=== PATIENT | female | born 1960 | race Caucasian/White ===

== ENCOUNTER 2025-09-28 07:04 | Day surgery (SDC) | payer MEDICARE, BC, SELFPAY ==
--- NOTE | 2025-09-26 07:24 | EXP.HP ---
History of Present Illness *Admission Date: 09/28/25 *History of present illness: Mrs. Padron is a 65-year-old female who is here for follow-up screening/surveillance colonoscopy. She does have a personal history of adenomatous colon polyps. She had a colonoscopy in February 2011 (Gianni Hernandez MD) and had multiple polyps removed. Her colonoscopy in May 2017 revealed 9 polyps (tubular adenomas x 9) which were removed. Her colonoscopy in August 2018 revealed 9 polyps (tubular adenomas x 9) which were removed. Her last colonoscopy in June 2022 revealed 5 polyps (tubular adenomas x 4/hyperplastic polyp x 1) which were removed. She reports no abdominal pain, weight loss, change in her bowel habits or rectal bleeding. She reports no family history of colon cancer. She did have cholecystectomy in February 2022 for symptomatic gallstones. The examination is deemed medically necessary for screening/surveillance colonoscopy. The patient has been seen, interviewed and examined prior to the procedure by both myself and the anesthesia provider. [facility] Disclaimer: The information contained in this section may have been updated after the patient was seen, as this information can be updated by other users. Medical History HLD (hyperlipidemia) Surgical History History of lumpectomy History of lithotripsy History of cholecystectomy History of hip replacement History of surgery on lower extremity History of surgery on wrist Family History Other Family history of heart disease Social History (Updated 09/28/25 @ 07:50 by Cole Cardozo CRNA) Smoking Status: Never smoker alcohol intake: never substance use type: denies use current occupational status: retired Travel in the last 8 weeks?: Inside the [place] Have you lived/traveled outside US in past 30 days?: No Contact w/someone who lives/traveled outside US past 30 days?: No Exposure to someone with infectious disease in past 14 days?: No Do you have a fever (greater than 100.4 F or 38 C)?: No Have you tested positive for COVID-19?: No Exposed to someone with COVID-19 in past 14 days?: No Do you have a sore throat?: No Do you have a cough?: No Do you have any weakness?: No Are you experiencing any nausea/vomitting?: No Do you have any diarrhea?: No Are you experiencing any unusual bleeding?: No Do you have any muscle aches/pain?: No Do you have any abdominal pain?: No Are you experiencing loss of taste or smell?: No Review of Systems Review of Systems Review of systems (narrative): Negative *Cardiovascular Comments: Negative *Gastrointestinal Comments: Negative *Genitourinary Comments: Negative *Musculoskeletal Comments: Negative *Neurologic Comments: Negative Meds Home Medications and Allergies Home Medications ?Medication ?Instructions ?Recorded ?Confirmed ?Type sodium,potassium,mag sulfates 17.5 See Rx Instructions PO .COMPLEX 09/14/25 Rx gram-3.13 gram-1.6 gram oral soln #354 mL (Suprep Bowel Prep Kit) atorvastatin 80 mg tablet (Lipitor) 80 mg PO DAILY 09/28/25 09/28/25 History New Prescriptions to Start Prescriptions: Allergies Allergy/AdvReac Type Severity Reaction Status Date / Time No Known Allergies Allergy Verified 09/28/25 07:35 Exam *Routine HEENT Exam Head: Present normocephalic Eye: Present EOMI and PERRL ENT: Present mucous membranes moist *Routine Neck Exam Neck: Present supple *Routine Respiratory Exam Respiratory: Present CTA bilaterally *Routine Cardiovascular Exam Cardiovascular: Present RRR *Routine Abdominal Exam Abdominal: Present soft and normoactive bowel sounds; Absent tenderness *Routine Rectal Exam Rectal:: deferred *Routine Genitalia Exam Genitalia:: deferred *Routine Extremities Exam Extremities: Absent cyanosis, clubbing or edema *Routine Skin Exam Skin: Present warm; Absent rash *Routine Neurological Exam Neurological: Present alert and oriented X3 Assessment and Plan *Assessment and plan (1) Personal history of adenomatous and serrated colon polyps: Status: Acute Category: Medical Code(s): Z86.0101 - Personal history of adenomatous and serrated colon polyps (2) Screening for colon cancer: Status: Acute Category: Medical Code(s): Z12.11 - Encounter for screening for malignant neoplasm of colon Plan A/P: 1. Personal history of adenomatous colon polyps is the preprocedural diagnosis. The patient will be anesthetized/sedated using MAC sedation. The patient has been seen and examined. Cardiac and lung assessment prior to the examination is stable. Proceed with planned screening/surveillance colonoscopy.
[2025-09-27 15:30] VITALS: BMI 18.4
--- NOTE | 2025-09-28 06:52 | P.PCN_ITS ---
[facility] Procedure Note Date: 09/28/25 Time: 08:24 Procedure Note:: Colonoscopy Procedure Report: Colonoscopy with cold snare polypectomy Endoscopist: Kishan Kang II, MD Referring physician: Zoie Kowalski MD, [address] [place] [id number] Date of Procedure: September 28, 2025 Equipment: Olympus [id number] adult colonoscope Sedation: MAC sedation Indication: Mrs. Padron is a 65-year-old female who is here for follow-up screening/surveillance colonoscopy. She does have a personal history of adenomatous colon polyps. She had a colonoscopy in February 2011 (Gianni Hernandez MD) and had multiple polyps removed. Her colonoscopy in May 2017 revealed 9 polyps (tubular adenomas x 9) which were removed. Her colonoscopy in August 2018 revealed 9 polyps (tubular adenomas x 9) which were removed. Her last colonoscopy in June 2022 revealed 5 polyps (tubular adenomas x 4/hyperplastic polyp x 1) which were removed. She reports no abdominal pain, weight loss, change in her bowel habits or rectal bleeding. She reports no family history of colon cancer. She did have cholecystectomy in February 2022 for symptomatic gallstones. The examination is deemed medically necessary for screening/surveillance colonoscopy. Procedure: Prior to the procedure, a history and physical exam was performed, and patient's medications and allergies were reviewed. The risks, benefits and alternatives of the sedation and procedure were discussed with the patient. All questions were answered and informed consent was obtained. The patient was brought to the procedure room. Patient identification and proposed procedure were verified by the physician and the nurse. The patient was placed in a left lateral decubitus position and the scope was passed under direct vision. Throughout the procedure, the patient's blood pressure, pulse, and oxygen saturations were monitored continuously. The colonoscopy was accomplished without difficulty. The patient tolerated the procedure well. Findings: On digital rectal examination there was normal rectal tone. There were no external hemorrhoids. The colonoscope was introduced through the anal canal to the rectum and advanced to the cecum. The ileocecal valve and appendiceal orifice were identified. The scope was advanced a short distance into the ileum which appeared grossly normal. The scope was then withdrawn into the colon. There were 2 diminutive polyps (ascending x 1 (2 mm) and descending x 1 (5 mm)). Both of these were removed via cold snare polypectomy. The remaining cecum, ascending, transverse, descending, sigmoid and rectum were grossly normal. There were no other mucosal abnormalities identified. Upon retroflexion within the rectum there were grade 2 internal hemorrhoids. The preparation was excellent throughout with [place] Preparation Score of 9. The cecal time was 14 minutes. Impression: 1. Diminutive colonic polyps x 2 (2 and 5 mm) 2. Grade 2 internal hemorrhoids Plan: I will follow-up the polyp histology. We will discuss surveillance interval (3 years) even though present exam with markedly fewer polyps. Persons with more than 20 adenomatous polyps cumulatively over the lifetime (over several colonoscopies) are considered to be higher risk for potential colon cancer or a genetic colon cancer polyposis syndrome. It is recommended that persons with more than a cumulative of 20 adenomatous polyps over there lifetime should be evaluated with surveillance colonoscopy no less than every 3 years. She has had more than 20 adenomatous polyps removed over the course of her colonoscopies.
[2025-09-28 07:38] VITALS: BP 125/63; PULSE 69; RESP 17; TEMP 36.4; O2SAT 98; BMI 18.4
[2025-09-28] MEDS: LACTATED RINGERS 1000ML 1,000 ML 50 ML IV (07:48)
--- NOTE | 2025-09-28 07:49 | P.PNANES_ITS ---
[facility] Disclaimer: The information contained in this section may have been updated after the patient was seen, as this information can be updated by other users. Medical History HLD (hyperlipidemia) Surgical History History of lumpectomy History of lithotripsy History of cholecystectomy History of hip replacement History of surgery on lower extremity History of surgery on wrist Family History Other Family history of heart disease Social History Smoking Status: Never smoker alcohol intake: never substance use type: denies use current occupational status: retired Travel in the last 8 weeks?: Inside the [facility] Anesthesia Checklist Patient Identification Patient Identification: Arm Band and Verbal (Name & ) Structural Data Admitted From: Home Planned Operative Procedure/s: Colonoscopy Consent for Planned Operative Procedure(s) Verified: Yes Verified Documents: Surgical Consent NPO Status Verified Time NPO: 00:00 Chart Verification Results Verified: None Additional verifications Anesthesia Reactions: No Airway Assessment Mallampati Score:: Class II C-Spine Mobility Assessed: Yes TMJ Mobility Assessed: Yes Dentition: Good Dentition Neurological Assessment Level of Consciousness: Awake, Alert and Appropriate Hx Seizures: No Numbness or tingling in extremities: No Anesthesia Plan Anesthesia Risk discussed: Yes Anesthesia Plan: Verified ASA Class: I Anesthesia Type: MAC
[2025-09-28 08:25] VITALS: BP 120/53; PULSE 82; RESP 18; TEMP 36.6; O2SAT 98
[2025-09-28 08:35] VITALS: BP 130/56; PULSE 79; O2SAT 99
[2025-09-28 08:45] VITALS: BP 122/72; PULSE 73; O2SAT 100
[2025-09-28 08:55] VITALS: BP 108/68; PULSE 70; O2SAT 99
== END 2025-09-28 08:55 | disposition home or self-care (01) ==
PROVIDERS: PCP Internal Medicine; Visit Provider Internal Medicine Gastroenterology
PROC: 0DJD8ZZ Inspection of Lower Intestinal Tract, Via Natural or Artificial Opening Endoscopic (ICD-10-PCS; CPT 45378; principal; 2025-09-28 08:30)
DX: Z12.11 Encounter for screening for malignant neoplasm of colon (principal); D12.4 Benign neoplasm of descending colon; D12.2 Benign neoplasm of ascending colon; K64.1 Second degree hemorrhoids; E78.5 Hyperlipidemia, unspecified; Z90.49 Acquired absence of other specified parts of digestive tract; Z86.0101 Personal history of adenomatous and serrated colon polyps
CPT/HCPCS: 45385; 88305; J2003; J2704; J7120